=== PATIENT | female | born 1955 | race Caucasian/White ===

== ENCOUNTER → 2018-02-20 07:16 | Outpatient (CLI) | payer OTHER, SELFPAY ==
[2018-02-20 07:34] LABS: Basophils % 0.4 % (0.1-2.0); Eosinophils # 0.3 K/mm3 (0.0-0.4); Hematocrit 44.6 % (37.0-47.0); Hemoglobin 14.5 g/dL (12.2-16.2); Lymphocytes # 2.5 K/mm3 (0.7-4.5); Lymphocytes % 25.9 K/mm3 (10-50); Mean Corpuscular HGB Conc 32.4 g/dL (31.8-35.4); Mean Corpuscular Volume 89.3 fl (81-99); Monocytes # 0.5 K/mm3 (0.1-1.0); Monocytes % 4.9 % (1.7-9.3); Neutrophils # 6.2 K/mm3 (1.8-7.8); Neutrophils % 65.7 % (37.0-80.0); Platelet Count 353 K/mm3 (142-424); Red Cell Distribution Width 13.6 % (11.5-17.5); White Blood Count 9.5 K/mm3 (4.8-10.8)
[2018-02-20 08:28] LABS: Alanine Aminotransferase 22 U/L (12-78); Albumin Level 3.4 gm/dL (3.4-5.0); Albumin/Globulin Ratio 0.9 (1.1-1.8); Alkaline Phosphatase 100 U/L (46-116); Anion Gap 11.7 mEq/L (5-15); Aspartate Amino Transferase 14 U/L (15-37); Bilirubin,Total 0.4 mg/dL (0.2-1.0); Blood Urea Nitrogen 12 mg/dL (7-18); Calcium 8.5 mg/dL (8.5-10.1); Carbon Dioxide 26 mmol/L (21.0-32.0); Chloride 105 mmol/L (98-107); Chol/HDL Ratio 4.2 (1-3.5); Cholesterol 183 mg/dL (140-200); Creatinine,Serum 0.74 mg/dL (0.55-1.02); Estimated Glomerular Filt Rate 80 ml/min (>60); Ferritin 70 ng/mL (8-388); GFR (African American) 96 ML/MIN (>60); Globulin 3.8 gm/dl (1.3-3.2); Glucose 94 mg/dL (74-106); HDL Cholesterol 44 mg/dL (29-89); LDL Cholesterol 114 mg/dL (0-130); Potassium 3.7 mmoL/L (3.5-5.1); Sodium 139 mmol/L (136-145); Total Protein,Serum 7.2 gm/dL (6.4-8.2); Triglycerides 127 mg/dL (30-200); VLDL Cholesterol 25 mg/dL (0-40)
== END ==
PROVIDERS: Visit Provider Nurse Practitioner Family
DX: D50.9 Iron deficiency anemia, unspecified (principal); I10 Essential (primary) hypertension; E03.9 Hypothyroidism, unspecified
CPT/HCPCS: 36415; 80053; 80061; 82728; 84443; 85025

== ENCOUNTER → 2018-10-05 16:20 | Outpatient (CLI) | payer OTHER, SELFPAY ==
--- NOTE | 2018-10-05 16:24 | XR_ITS ---
XR chest 2V HISTORY: ITS.REASON: COUGH,WHEEZING,DYSPNEA ORDERING PHYSICIAN: Hope Whaley PATIENT AGE: 62 years COMPARISON: 08/19/2016 FINDINGS: The cardiomediastinal silhouette and pulmonary vascularity are within normal limits. The lungs are clear without infiltrates, suspicious nodules, or pleural effusions. No acute bony abnormalities. IMPRESSION: No change with no acute finding
== END ==
PROVIDERS: PCP Nurse Practitioner Family; Visit Provider Nurse Practitioner Family
DX: R05 Cough (principal); R06.2 Wheezing; R06.09 Other forms of dyspnea
CPT/HCPCS: 71046

== ENCOUNTER → 2018-10-21 11:18 | Outpatient (CLI) | payer OTHER, SELFPAY ==
[2018-10-21 12:16] LABS: Basophils % 0.4 % (0.1-2.0); Eosinophils # 0.2 K/mm3 (0.0-0.4); Eosinophils % 2.1 % (0.1-12.0); Hematocrit 44.9 % (37.0-47.0); Hemoglobin 13.9 g/dL (12.2-16.2); Lymphocytes # 2.6 K/mm3 (0.7-4.5); Lymphocytes % 24.1 % (10-50); Mean Corpuscular HGB Conc 30.9 g/dL (31.8-35.4); Mean Corpuscular Hemoglobin 28.3 pg (27.0-31.2); Mean Corpuscular Volume 91.6 fl (81-99); Mean Platelet Volume 7.3 fl (7.4-10.4); Monocytes # 0.5 K/mm3 (0.1-1.0); Monocytes % 4.5 % (1.7-9.3); Neutrophils # 7.4 K/mm3 (1.8-7.8); Neutrophils % 68.9 % (37.0-80.0); Platelet Count 385 K/mm3 (142-424); Red Blood Count 4.91 M/mm3 (4.20-5.40); Red Cell Distribution Width 13.3 % (11.5-17.5); White Blood Count 10.7 K/mm3 (4.8-10.8)
[2018-10-21 13:01] LABS: Alanine Aminotransferase 18 U/L (12-78); Albumin Level 3.4 gm/dL (3.4-5.0); Albumin/Globulin Ratio 0.9 (1.1-1.8); Alkaline Phosphatase 101 U/L (46-116); Anion Gap 13.3 mEq/L (5-15); Aspartate Amino Transferase 17 U/L (15-37); Bilirubin,Total 0.3 mg/dL (0.2-1.0); Blood Urea Nitrogen 14 mg/dL (7-18); Carbon Dioxide 29 mmol/L (21.0-32.0); Chloride 102 mmol/L (98-107); Creatinine,Serum 0.73 mg/dL (0.55-1.02); Estimated Glomerular Filt Rate 81 ml/min (>60); Ferritin 91 ng/mL (8-388); GFR (African American) 98 ML/MIN (>60); Glucose 96 mg/dL (74-106); Potassium 4.3 mmoL/L (3.5-5.1); Sodium 140 mmol/L (136-145); Total Protein,Serum 7.4 gm/dL (6.4-8.2)
== END ==
PROVIDERS: Visit Provider Nurse Practitioner Family
DX: D50.9 Iron deficiency anemia, unspecified (principal); R60.9 Edema, unspecified; E03.9 Hypothyroidism, unspecified
CPT/HCPCS: 36415; 80053; 82728; 84443; 85025

== ENCOUNTER → 2018-11-02 09:58 | Outpatient (CLI) | payer OTHER, SELFPAY ==
--- NOTE | 2018-11-02 10:02 | XR_ITS ---
XR knee RT 3V Ordering Physician: Ramon Tran MD Patient Age: 62 years: Female HISTORY: ITS.REASON: RT ANTERIOR KNEE PAIN No known injury.. Pain anterior knee across patella TECHNIQUE: 3 views right knee nonweightbearing COMPARISON :None FINDINGS Degenerative arthritic changes at the right knee most evident at the medial compartment . There is slight narrowing of the medial compartment on on this nonweightbearing study. Tricompartmental marginal osteophytes are most exuberant about the medial margin of the medial compartment. Today's Lateral film slightly rotated, but there is suggestion of joint effusion at the suprapatella bursa. Marginal osteophytes are seen about the margins of patella at patellofemoral joint. Patella appears to be satisfactory position on the lateral view. [place] view may be of benefit to further evaluate patellofemoral relationships if so desired ... Minimal hypertrophic spurring also noted at the insertion of the quadriceps as well as patellar tendon towards more anterior superior & inferior aspect of patella respectively.. Bones well mineralized. No erosive changes. Minimal fragmentation at the tibial tubercle region appears to be old feature. IMPRESSION: 1. Osteoarthritis changes Right Knee-most pronounced at the medial compartment, followed by the patellofemoral joint. 2. Suggestion of joint effusion suprapatella bursa
== END ==
PROVIDERS: PCP Internal Medicine Adolescent Medicine; Visit Provider Internal Medicine Adolescent Medicine
DX: M25.561 Pain in right knee (principal)
CPT/HCPCS: 73562

== ENCOUNTER → 2019-10-05 08:28 | Outpatient (CLI) | payer OTHER, SELFPAY ==
[2019-10-05 09:57] LABS: Basophils # 0.1 K/mm3 (0-0.2); Basophils % 0.6 % (0.1-2.0); Eosinophils # 0.3 K/mm3 (0.0-0.4); Eosinophils % 3.4 % (0.1-12.0); Hematocrit 41.2 % (37.0-47.0); Hemoglobin 13.2 g/dL (12.2-16.2); Lymphocytes # 2.2 K/mm3 (0.7-4.5); Lymphocytes % 26.8 % (10-50); Mean Corpuscular HGB Conc 32.1 g/dL (31.8-35.4); Mean Corpuscular Hemoglobin 28.2 pg (27.0-31.2); Mean Corpuscular Volume 87.9 fl (81-99); Mean Platelet Volume 7.9 fl (7.4-10.4); Monocytes # 0.4 K/mm3 (0.1-1.0); Monocytes % 5.1 % (1.7-9.3); Neutrophils # 5.4 K/mm3 (1.8-7.8); Neutrophils % 64.1 % (37.0-80.0); Platelet Count 386 K/mm3 (142-424); Red Blood Count 4.68 M/mm3 (4.20-5.40); Red Cell Distribution Width 13.6 % (11.5-17.5); White Blood Count 8.3 K/mm3 (4.8-10.8)
[2019-10-05 10:48] LABS: Chloride 101 mmol/L (98-107); Potassium 4.4 mmoL/L (3.5-5.1); Sodium 137 mmol/L (136-145)
[2019-10-05 10:50] LABS: Alanine Aminotransferase 13 U/L (12-78); Aspartate Amino Transferase 25 U/L (14-36); Blood Urea Nitrogen 11 mg/dl (7-17); Estimated Glomerular Filt Rate 85 ml/min (>60); GFR (African American) 102 ML/MIN (>60)
[2019-10-05 10:51] LABS: Albumin Level 3.7 g/dl (3.5-5.0); Albumin/Globulin Ratio 1.2 (1.1-1.8); Alkaline Phosphatase 80 U/L (38-126); Anion Gap 11.4 mEq/L (5-15); Bilirubin,Total 0.4 mg/dl (0.2-1.3); Calcium 9.1 mg/dl (8.4-10.2); Carbon Dioxide 29 mmol/L (22.0-30.0); Chol/HDL Ratio 5.3 (1-3.5); Cholesterol 192 mg/dl (140-200); Glucose 73 mg/dl (74-100); HDL Cholesterol 36 mg/dl (40-60); Total Protein,Serum 6.7 g/dl (6.3-8.2); Triglycerides 164 mg/dl (30-150); VLDL Cholesterol 33 mg/dL (0-40)
[2019-10-05 11:02] LABS: Direct LDL Cholesterol 133.74 mg/dL (100-129)
== END ==
PROVIDERS: Visit Provider Nurse Practitioner Family
DX: E03.9 Hypothyroidism, unspecified (principal); I89.0 Lymphedema, not elsewhere classified; I10 Essential (primary) hypertension; Z86.2 Personal history of diseases of the blood and blood-forming organs and certain disorders involving the immune mechanism
CPT/HCPCS: 36415; 80053; 80061; 84439; 84443; 85025

== ENCOUNTER 2019-10-22 09:00 | Outpatient (RCR) | payer OTHER, SELFPAY ==
--- NOTE | 2019-10-04 14:15 | HMH.PTOPWND ---
Rehab Outpt Wound Evaluation Rehab OP Wound Evaluation Start: 10/04/19 13:01 Freq: Status: Active Protocol: Document 10/04/19 14:09 KARAN (Rec: 10/04/19 14:15 PHORNE [id number]) Electronically Signed By Jorge Muir, PT 10/04/19 14:09 Subjective/History History History Pt is 63 yowf who presents with c/o B LE edema, L > R, x ~ 2 yrs overall, but worse x 2 mos. She reports no c/o pain, but mild tenderness to palpation and intermittent tingling in the toes. She edema usually decreased with elevation at night, but lately it has remained higher despite elevation. She has PMH of CONSTANTINE, R breast CA with lumpectomy and partial mastectomy with 2 LN removed, L TKA, thyroidectomy, HTN. Subjective Subjective She reports 0/10 pain currently. Lymphedema Eval Classification of Lymphedema Secondary Lymphedema Yes Stemmer's sign Stemmer's Sign no Stage of Lymphedema Lymphedema stages Stage II (Pitting edema, increased fibrosis w/ decreased pitting) Skin Changes Dry Skin Yes Redness Yes Other Changes Yes Pain Scale Pain Scale (0-10) 0 Chemo Therapy Has received chemo therapy yes Affected Extremities Areas Affected by Lymphedema/Edema Abdomen,Right Lower Extremity, Left Lower Extremity Manual Lymphatic Drainage Treatment Area MLD Treatment Area Right Lower Extremity,Left Lower Extremity Wound Problems/Impairments Impairments Problems/Impairmments Palpation Tenderness,Increased Edema,Lymphedema Present, Impaired Self Care/Self Management Prognosis Rehab Potential Good Clinical Impression Consistent with Diagnosis Yes Short Term Goals Number of Weeks 4 Decreased Palpation Tenderness Yes: to min Patient to be Ind w/ [place] Yes Compression Garments Patient to Understand Lymphedema Yes Treatment and Exercises Decrease Girth Measurments by (cm) Yes: by 10 cm Last Picker Goals Number of Weeks 8 Decreased Palpation Tenderness Yes: to none Patient to be Ind w/ HEP Yes Patient to be
== END 2019-10-22 09:05 | disposition home or self-care (01) ==
LOC: PT 09:00
PROVIDERS: PCP Internal Medicine Adolescent Medicine; Visit Provider Nurse Practitioner Family
DX: I89.0 Lymphedema, not elsewhere classified (principal)
CPT/HCPCS: 97140; 97162

== ENCOUNTER → 2020-05-14 16:49 | Outpatient (CLI) | payer OTHER, SELFPAY | PROVIDERS: PCP Internal Medicine Adolescent Medicine; Visit Provider Nurse Practitioner Family | DX: Z20.828 Contact with and (suspected) exposure to other viral communicable diseases (principal); U07.1 COVID-19 | CPT/HCPCS: U0003 ==

== ENCOUNTER → 2020-06-06 08:09 | Outpatient (CLI) | payer OTHER, SELFPAY ==
[2020-06-06 08:49] LABS: Basophils # 0.1 K/mm3 (0-0.2); Basophils % 0.5 % (0.1-2.0); Eosinophils # 0.2 K/mm3 (0.0-0.4); Hematocrit 40.4 % (37.0-47.0); Hemoglobin 12.9 g/dL (12.2-16.2); Lymphocytes # 2.4 K/mm3 (0.7-4.5); Lymphocytes % 21.8 % (10-50); Mean Corpuscular Hemoglobin 26.8 pg (27.0-31.2); Mean Corpuscular Volume 83.9 fl (81-99); Mean Platelet Volume 7.3 fl (7.4-10.4); Monocytes # 0.5 K/mm3 (0.1-1.0); Monocytes % 4.9 % (1.7-9.3); Neutrophils # 7.9 K/mm3 (1.8-7.8); Neutrophils % 70.8 % (37.0-80.0); Platelet Count 454 K/mm3 (142-424); Red Blood Count 4.82 M/mm3 (4.20-5.40); Red Cell Distribution Width 15.1 % (11.5-17.5); White Blood Count 11.1 K/mm3 (4.8-10.8)
[2020-06-06 09:40] LABS: Chloride 103 mmol/L (98-107); Sodium 139 mmol/L (136-145)
[2020-06-06 09:41] LABS: Potassium 4.5 mmoL/L (3.5-5.1)
[2020-06-06 09:43] LABS: Alanine Aminotransferase 14 U/L (12-78); Albumin Level 3.9 g/dl (3.5-5.0); Albumin/Globulin Ratio 1.2 (1.1-1.8); Alkaline Phosphatase 97 U/L (38-126); Anion Gap 11.5 mEq/L (5-15); Aspartate Amino Transferase 24 U/L (14-36); Bilirubin,Total 0.4 mg/dl (0.2-1.3); Blood Urea Nitrogen 15 mg/dl (7-17); Carbon Dioxide 29 mmol/L (22.0-30.0); Cholesterol 196 mg/dl (140-200); Estimated Glomerular Filt Rate 84 ml/min (>60); GFR (African American) 102 ML/MIN (>60); Globulin 3.2 g/dL (1.3-3.2); Total Protein,Serum 7.1 g/dl (6.3-8.2); Triglycerides 159 mg/dl (30-150); VLDL Cholesterol 32 mg/dL (0-40)
[2020-06-06 09:44] LABS: Calcium 9.1 mg/dl (8.4-10.2); Chol/HDL Ratio 4.5 (1-3.5); Glucose 91 mg/dl (74-100); HDL Cholesterol 44 mg/dl (40-60)
[2020-06-06 09:55] LABS: Direct LDL Cholesterol 128.84 mg/dL (100-129)
[2020-06-06 11:31] LABS: Thyroid Stimulating Hormone 2.58 uIU/mL (0.465-4.68)
== END ==
PROVIDERS: Visit Provider Nurse Practitioner Family
DX: I89.0 Lymphedema, not elsewhere classified (principal); E78.5 Hyperlipidemia, unspecified; E03.9 Hypothyroidism, unspecified; Z86.2 Personal history of diseases of the blood and blood-forming organs and certain disorders involving the immune mechanism
CPT/HCPCS: 36415; 80053; 80061; 84443; 85025

== ENCOUNTER → 2020-06-14 10:47 | Outpatient (CLI) | payer OTHER, SELFPAY ==
--- NOTE | 2020-06-14 10:49 | MM_ITS ---
PROCEDURE: MM DIG SCREENING MAMM BI W/CAD Digital Breast Tomosynthesis Included CLINICAL INDICATION: SCREENING There has been a previous lumpectomy for malignancy right breast. There is a history of breast COMPARISON: MG DMSB DIGITAL MAMM-SCREEN BILATERAL from 05/08/2012 MG DMSB DIG MAMM-SCREEN MARY from 09/16/2013 MG DMSB DIG MAMM-SCREEN MARY from 09/12/2015 TECHNIQUE: Standard CC and MLO images and 3D Tomosynthesis was obtained. R2 CAD reviewed. FINDINGS: Mild to moderate scattered fibroglandular densities are seen throughout both breasts. There is stable postlumpectomy scarring central portion right breast with multiple surgical clips as seen on previous studies. There is a stable tiny nodular density adjacent to the lumpectomy site with benign findings. There is no new or suspicious lesion in either breast and no suspicious microcalcifications. IMPRESSION: Stable exam with stable post lumpectomy scarring right breast BI-RAD Category: 2 Benign Finding(s) FOLLOW-UP: 1YR 1 Year Follow-up (A letter has been sent to the patient regarding results of the study.) Dictated by: Dr. Armando Moody MD 06/16/2020 08:54 Dr. Armando Moody MD in [place] 06/16/2020 08:54
== END ==
PROVIDERS: PCP Internal Medicine Adolescent Medicine; Visit Provider Nurse Practitioner Family
DX: Z12.31 Encounter for screening mammogram for malignant neoplasm of breast (principal)
CPT/HCPCS: 77063; 77067

== ENCOUNTER → 2020-10-02 09:17 | Outpatient (CLI) | payer OTHER, SELFPAY | PROVIDERS: PCP Nurse Practitioner Family; Visit Provider Nurse Practitioner Family | DX: Z12.31 Encounter for screening mammogram for malignant neoplasm of breast (principal) ==

== ENCOUNTER → 2021-07-02 08:55 | Outpatient (CLI) | payer OTHER, SELFPAY ==
[2021-07-02 09:21] LABS: Basophils # 0.1 K/mm3 (0-0.2); Basophils % 0.6 % (0.1-2.0); Eosinophils # 0.4 K/mm3 (0.0-0.4); Eosinophils % 4.7 % (0.1-12.0); Hematocrit 40.3 % (37.0-47.0); Hemoglobin 13.4 g/dL (12.2-16.2); Lymphocytes # 1.9 K/mm3 (0.7-4.5); Lymphocytes % 20.9 % (10-50); Mean Corpuscular HGB Conc 33.3 g/dL (31.8-35.4); Mean Corpuscular Hemoglobin 27.6 pg (27.0-31.2); Mean Corpuscular Volume 82.8 fl (81-99); Mean Platelet Volume 8.4 fl (7.4-10.4); Monocytes # 0.5 K/mm3 (0.1-1.0); Monocytes % 5.2 % (1.7-9.3); Neutrophils # 6.3 K/mm3 (1.8-7.8); Neutrophils % 68.6 % (37.0-80.0); Platelet Count 499 K/mm3 (142-424); Red Blood Count 4.86 M/mm3 (4.20-5.40); Red Cell Distribution Width 14.4 % (11.5-17.5); White Blood Count 9.1 K/mm3 (4.8-10.8)
[2021-07-02 10:11] LABS: Chloride 102 mmol/L (98-107); Potassium 4.7 mmoL/L (3.5-5.1); Sodium 139 mmol/L (136-145)
[2021-07-02 10:13] LABS: Alanine Aminotransferase 10 U/L (12-78); Aspartate Amino Transferase 28 U/L (14-36); Blood Urea Nitrogen 12 mg/dl (7-17); Estimated Glomerular Filt Rate 84 ml/min (>60); GFR (African American) 102 ML/MIN (>60)
[2021-07-02 10:14] LABS: Albumin Level 3.9 g/dl (3.5-5.0); Albumin/Globulin Ratio 1.3 (1.1-1.8); Alkaline Phosphatase 121 U/L (38-126); Anion Gap 11.7 mEq/L (5-15); Bilirubin,Total 0.3 mg/dl (0.2-1.3); Calcium 9.7 mg/dl (8.4-10.2); Carbon Dioxide 30 mmol/L (22.0-30.0); Chol/HDL Ratio 4.6 (1-3.5); Cholesterol 212 mg/dl (140-200); Globulin 3.1 g/dL (1.3-3.2); Glucose 93 mg/dl (74-100); HDL Cholesterol 46 mg/dl (40-60); Triglycerides 182 mg/dl (30-150); VLDL Cholesterol 36 mg/dL (0-40)
[2021-07-02 10:45] LABS: Thyroid Stimulating Hormone 3.22 uIU/mL (0.465-4.68)
== END ==
PROVIDERS: Visit Provider Nurse Practitioner Family
DX: Z00.00 Encounter for general adult medical examination without abnormal findings (principal); E03.9 Hypothyroidism, unspecified
CPT/HCPCS: 36415; 80053; 80061; 84443; 85025

== ENCOUNTER → 2021-07-12 08:13 | Outpatient (CLI) | payer OTHER, SELFPAY ==
--- NOTE | 2021-07-12 08:16 | XR_ITS ---
PROCEDURE: XR DEXA AXIAL SKELETON CLINICAL HISTORY: POST MENOPAUSAL COMPARISON: No exams were available for comparison FINDINGS: The right hip BMD is 0.775 with a T-score of -0.7. The left hip BMD is 0.83 with a T-score of -0.1. The lumbar spine BMD is 1.165 with a T-score of 1.1. IMPRESSION: This patient is considered normal according to the World Health Organization criteria. Fracture risk is low. Based on these results a follow-up exam is recommended in 2 year. Dictated by: Ricky Jansen MD 07/12/2021 16:57 Ricky Jansen MD in [place] 07/12/2021 16:57
--- NOTE | 2021-07-12 08:16 | MM_ITS ---
PROCEDURE INFORMATION: Exam: MG Bilateral Screening 3D Mammography Exam date and time: 07/12/2021 8:16 AM Age: 65 years old Clinical indication: Encounter for screening mammogram for malignant neoplasm of breast TECHNIQUE: Imaging protocol: Bilateral screening tomosynthesis and 2D mammography including computer-aided detection (CAD) when performed. COMPARISON: 1. MG MM DIG SCREENING MAMM BI W/CAD 06/14/2020 10:51 AM 2. MG DMSB DIG MAMM-SCREEN MARY 09/12/2015 9:17 AM FINDINGS: MAMMOGRAPHY: Breast composition: The breast tissue is composed of scattered areas of fibroglandular density. Mass: None. Architectural distortion: Stable post operative architectural distortion in the right upper inner quadrant with overlying skin thickening and retraction due to prior lumpectomy for carcinoma. Calcifications: No suspicious calcifications. Asymmetric density: None. Skin thickening: None. Axillary adenopathy: None. IMPRESSION: No mammographic evidence of malignancy. Annual screening is recommended unless otherwise clinically indicated. ASSESSMENT: BI-RADS Category 2: Benign
== END ==
PROVIDERS: PCP Nurse Practitioner Family; Visit Provider Nurse Practitioner Family
DX: Z12.31 Encounter for screening mammogram for malignant neoplasm of breast (principal); Z13.820 Encounter for screening for osteoporosis; Z78.0 Asymptomatic menopausal state
CPT/HCPCS: 77063; 77067; 77080

== ENCOUNTER → 2023-01-09 08:37 | Outpatient (CLI) | payer MEDICARE, OTHER, SELFPAY | PROVIDERS: PCP Nurse Practitioner Family; Visit Provider Nurse Practitioner Family | DX: R00.2 Palpitations (principal) | CPT/HCPCS: 93306 ==

== ENCOUNTER → 2023-06-04 12:55 | Outpatient (CLI) | payer MEDICARE, OTHER, SELFPAY ==
[2023-06-04 13:42] LABS: Basophils # 0.1 K/mm3 (0-0.2); Basophils % 0.6 % (0.1-2.0); Eosinophils # 0.2 K/mm3 (0.0-0.4); Eosinophils % 2.7 % (0.1-12.0); Hematocrit 43.1 % (37.0-47.0); Hemoglobin 14.2 g/dL (12.2-16.2); Lymphocytes # 2.1 K/mm3 (0.7-4.5); Lymphocytes % 23.9 % (10-50); Mean Corpuscular Hemoglobin 28.4 pg (27.0-31.2); Monocytes # 0.4 K/mm3 (0.1-1.0); Monocytes % 4.7 % (1.7-9.3); Neutrophils # 5.9 K/mm3 (1.8-7.8); Platelet Count 347 K/mm3 (142-424); Red Blood Count 5.01 M/mm3 (4.20-5.40); Red Cell Distribution Width 15.3 % (11.5-17.5); White Blood Count 8.7 K/mm3 (4.8-10.8)
[2023-06-04 15:26] LABS: Alanine Aminotransferase 23 U/L (12-78); Albumin Level 4.1 g/dl (3.5-5.0); Albumin/Globulin Ratio 1.2 (1.1-1.8); Alkaline Phosphatase 98 U/L (38-126); Anion Gap 14.1 mEq/L (5-15); Aspartate Amino Transferase 36 U/L (14-36); Bilirubin,Total 0.3 mg/dl (0.2-1.3); Blood Urea Nitrogen 10 mg/dl (7-17); Calcium 9.1 mg/dl (8.4-10.2); Carbon Dioxide 30 mmol/L (22.0-30.0); Chloride 99 mmol/L (98-107); Chol/HDL Ratio 4.8 (1-3.5); Cholesterol 196 mg/dl (140-200); Estimated Glomerular Filt Rate 62 ml/min (>60); GFR (African American) 76 ML/MIN (>60); Globulin 3.3 g/dL (1.3-3.2); Glucose 95 mg/dl (74-100); HDL Cholesterol 41 mg/dl (40-60); Potassium 4.1 mmoL/L (3.5-5.1); Sodium 139 mmol/L (136-145); Total Protein,Serum 7.4 g/dl (6.3-8.2); Triglycerides 170 mg/dl (30-150); VLDL Cholesterol 34 mg/dL (0-40)
[2023-06-04 15:36] LABS: Direct LDL Cholesterol 123.43 mg/dL (100-129)
[2023-06-04 15:56] LABS: Thyroid Stimulating Hormone 0.63 uIU/mL (0.465-4.68)
== END ==
PROVIDERS: PCP Nurse Practitioner Family; Visit Provider Nurse Practitioner Family
DX: E03.9 Hypothyroidism, unspecified (principal); E78.2 Mixed hyperlipidemia; Z86.2 Personal history of diseases of the blood and blood-forming organs and certain disorders involving the immune mechanism
CPT/HCPCS: 36415; 80053; 80061; 84443; 85025

== ENCOUNTER → 2023-07-14 15:04 | Outpatient (CLI) | payer MEDICARE, OTHER, SELFPAY ==
--- NOTE | 2023-07-14 15:10 | MM_ITS ---
PROCEDURE INFORMATION: Exam: MG Bilateral Screening 3D Mammography Exam date and time: 07/14/2023 3:11 PM Age: 67 years old Clinical indication: Screening examination. History of right breast cancer TECHNIQUE: Imaging protocol: Bilateral Screening tomosynthesis and 2D mammography including computer-aided detection (CAD) when performed. COMPARISON: 1. MG MM DIG SCREENING MAMM BI W/CAD 07/12/2021 8:35 AM 2. MG MM DIG SCREENING MAMM BI W/CAD 06/14/2020 10:51 AM FINDINGS: MAMMOGRAPHY: Breast composition: There are scattered areas of fibroglandular density. Mass: None. Architectural distortion: Stable post operative architectural distortion in the right upper inner quadrant with overlying skin thickening and retraction due to prior lumpectomy for carcinoma. Calcifications: No suspicious calcifications. Asymmetric density: None. Skin thickening: See above. Axillary adenopathy: None. IMPRESSION: No mammographic evidence of malignancy. Annual screening is recommended unless otherwise clinically indicated. ASSESSMENT: BI-RADS Category 2: Benign
== END ==
PROVIDERS: PCP Nurse Practitioner Family; Visit Provider Nurse Practitioner Family
DX: Z12.31 Encounter for screening mammogram for malignant neoplasm of breast (principal)
CPT/HCPCS: 77063; 77067

== ENCOUNTER 2024-07-15 09:28 | Outpatient (CLI) | payer MEDICARE, OTHER, SELFPAY ==
--- NOTE | 2024-07-15 | US_ITS ---
PROCEDURE INFORMATION: Exam: US Left Breast, Complete MG Left Diagnostic Breast Tomosynthesis Exam date and time: 07/15/2024 9:25 AM Age: 68 years old Clinical indication: Concern for left breast lump. Personal history of right breast cancer status post lumpectomy. TECHNIQUE: Imaging protocol: Complete ultrasound of all four quadrants of the left breast and the retroareolar regions, including ultrasound of the axilla when performed. Left Diagnostic tomosynthesis and 2D mammography including computer-aided detection (CAD) when performed. Unilateral or bilateral exam. COMPARISON: 1. MG MM DIG SCREENING MAMM BI W/CAD 07/14/2023 3:11 PM 2. MG MM DIG SCREENING MAMM BI W/CAD 07/12/2021 8:35 AM 3. MG MM DIG SCREENING MAMM BI W/CAD 06/14/2020 10:51 AM 4. MG DMSB DIG MAMM-SCREEN MARY 09/12/2015 9:17 AM FINDINGS: MAMMOGRAPHY: Breast mammogram findings: Breast composition: There are scattered areas of fibroglandular density. Mass: Oval 0.6 cm mass in the left upper inner quadrant posterior 3rd, CC image 1718 frame 23 and MLO image 1106 for frame 40. Architectural distortion: Stable architectural distortion, asymmetry, deformity and surgical clips at the right lumpectomy. Calcifications: No suspicious calcifications. Asymmetric density: Corresponding to the palpable concern, patchy 2.0 cm asymmetry best seen in the left lateral breast posteriorly in the CC projection and less prominent in the upper breast in the MLO projection. Skin thickening: None. Axillary adenopathy: None. ULTRASOUND: Breast ultrasound findings: Left sonography, all 4 quadrants, retroareolar and axilla demonstrates no sonographic findings at the palpable concern in the upper outer quadrant in 2 o'clock 7 cm from the nipple. At 10 o'clock 9 cm from the nipple, probable complicated cyst with thin avascular septation measuring 0.6 x 0.4 x 0.4 cm. Retroareolar, probable simple 0.3 cm cyst. Sonographically unremarkable axillary lymph node. IMPRESSION: Palpable concern corresponds to new patchy asymmetry in the left upper outer quadrant, best seen in the posterior CC projection, with no sonographic correlate. Suggest stereotactic biopsy in the CC projection, if not visualized, advise breast MRI. Further evaluation of a palpable abnormality should be based on clinical grounds regardless of radiographic findings or lack thereof. Mass in the left upper inner quadrant corresponds to probably benign complicated cyst at 10 o'clock, suggest six-month follow-up sonography (though management may be influenced by above recommended biopsy). ASSESSMENT: BI-RADS Category 4: Suspicious.
== END 2024-07-15 23:59 | disposition home or self-care (01) ==
LOC: RAD 09:32
PROVIDERS: PCP Nurse Practitioner Family; Visit Provider Nurse Practitioner Family
DX: N63.20 Unspecified lump in the left breast, unspecified quadrant (principal)
CPT/HCPCS: 76641; 77062; 77066; G0279

== ENCOUNTER 2024-08-02 09:05 | Outpatient (CLI) | payer MEDICARE, OTHER, SELFPAY ==
--- NOTE | 2024-08-02 09:10 | MM_ITS ---
FINAL REPORT CLINICAL HISTORY: S/P LT BREAST BX. CLIP PLACEMENT FINDINGS: MAMMOGRAM LEFT TECHNIQUE: Standard digital 2-D views COMPARISON: Recent abnormal screening and diagnostic mammograms DENSITY: There are scattered areas of fibroglandular density FINDINGS: Post biopsy marker clip is noted to be in satisfactory position. Postbiopsy changes are noted. Area of focal asymmetry is obscured by postbiopsy changes in the left upper outer quadrant. IMPRESSION: Biopsy marker clip in good position ASSESSMENT: A post-procedure mammogram is used to confirm the position and deployment of a breast tissue marker after a biopsy RECOMMENDATION: Short-term mammographic follow-up left breast in 6 months as part of normal benign biopsy surveillance. Authenticated and ERN
--- NOTE | 2024-08-02 09:10 | MM_ITS ---
FINAL REPORT CLINICAL HISTORY: left breast density FINDINGS: STEREOTACTIC GUIDED RIGHT BREAST BIOPSY, CLIP PLACEMENT, AND POST BIOPSY MAMMOGRAM Indication: Abnormal mammogram/density/mass Findings: The stereotactic guided breast biopsy procedure was explained in detail to the patient including potential risk and benefits. The patient voiced an understanding of the procedure, was given an opportunity to ask questions, after which informed consent was obtained. The patient was positioned upon the stereotactic unit in the prone position. The breast was prepped in the usual sterile fashion. Subcutaneous soft tissues were anesthetized with lidocaine with epinephrine. A superior to inferior CC approach was utilized. Subsequently, with intermittent stereotactic guidance, the stereotactic biopsy needle was advanced into the breast in the region of the mammographic abnormality corresponding to recent diagnostic mammogram. Multiple vacuum assisted core samples were obtained. Sampling was thought to be adequate and the biopsy clip marker was deployed in the region of biopsy. Additional imaging as detailed below was performed. Post procedure routine CC and MLO view mammogram: Post biopsy changes. Biopsy marker clip noted to be in the appropriate location. Patient tolerated the procedure well. No immediatecomplications. IMPRESSION: 1. Technically successful stereotactic guided biopsy of focal asymmetry left breast 2. Biopsy marker clip deployed 3. 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 No evidence of atypia or carcinoma. Pathology is concordant with mammographic findings. Recommend 6 month mammographic follow-up as routine benign postbiopsy surveillance. Authenticated and ERN
[2024-08-02] MEDS: HYDROCODONE/APAP 5/325 MG TABLET 1 TAB PO (10:00)
[2024-08-02] MEDS: ALPRAZolam 0.5MG TABLET 0.5 MG PO (10:00)
[2024-08-02] MEDS: LIDOCAINE 1% 10ML MDV IJ (11:20)
[2024-08-02] MEDS: RAD-SODIUM CHLORIDE 0.9% 250ML BAG 100 ML IV (11:31)
== END 2024-08-02 23:59 | disposition home or self-care (01) ==
LOC: RAD 09:07
PROVIDERS: PCP Nurse Practitioner Family; Visit Provider Nurse Practitioner Family
DX: R92.8 Other abnormal and inconclusive findings on diagnostic imaging of breast (principal); N63.20 Unspecified lump in the left breast, unspecified quadrant
CPT/HCPCS: 19081; 77065; 88305

== ENCOUNTER 2025-08-02 15:10 | Outpatient (CLI) | payer MEDICARE, OTHER, SELFPAY ==
--- OUTSIDE RECORDS SUMMARY | 2024-11-06 16:30 | XMS_ITS ---
Author Organization [facility] Address [address] [place] [address] Care Team Providers Care Text Transcriber Name Role Phone Jovana Hope Primary Care Provider [phone] Migration, Provider Unavailable Unavailable REASON FOR VISIT [facility] To [facility] Conversion Encounter Medications Medication SIG (Take, Route, Frequency, Duration) Notes Start Date End Date Status Levothyroxine Sodium 137 MCG Tablet 1 tab(s) orally once a day; Duration: 30 days Active Triamcinolone Acetonide 0.1 % Ointment 1 judah applied topically 3 times a day; Duration: 7 day(s) prn 03/30/2022 Active Ibuprofen 800 MG Tablet 1 tab(s) orally 3-4 times a day prn prn Active TRIAMTERENE/HCTZ 25 MG-37.5 MG CAPSULE 1 TAB(S) ORALLY ONCE A DAY; Duration: 90 DAYS *Please review for potential replacement for e-prescription and drug interaction check* Active Nystatin 958308 UNIT/GM Cream 1 judah applied topically 3 times a day; Duration: 14 days prn 02/19/2018 Active Promethazine-DM 6.25-15 MG/5ML Syrup 5 mL orally every 6 hours; Duration: 10 days 10/08/2024 Active Amoxicillin 875 MG Tablet 1 tab(s) orally 2 times a day; Duration: 7 days 10/08/2024 Active Encounters Encounter Location Date Provider Diagnosis [facility] [address] [place] [address] 11/06/2024 Provider Migration Acute non-recurrent maxillary sinusitis J01.00 and Viral bronchitis J20.8 Assessments Encounter Date Diagnosis (ICD Code) Assessment Notes Treatment Notes Treatment Clinical Notes Section Notes 11/06/2024 Acute non-recurrent maxillary sinusitis (ICD-10 - J01.00) 11/06/2024 Viral bronchitis (ICD-10 - J20.8) Plan Of Treatment Medication Medication Name Sig Start Date Stop Date Notes Levothyroxine Sodium 137 MCG Tablet 1 tab(s) orally once a day; Duration: 30 days Promethazine-DM 6.25-15 MG/5 ML Syrup 5 mL orally every 6 hours; Duration: 10 days 10/08/2024 Amoxicillin 875 MG Tablet 1 tab(s) orall y 2 times a day; Duration: 7 days 10/08/2024 Progress Notes * Aggie PAUL LDOB: [birth year] (69 yo F)Acc No.[id number]:11/06/2024 Patient: Aggie Nagy Provider: Marylin menon Migration :1955 A ge:68 Y S ex:Female Date:11/06/2024 Address:[facility] [address], [id number] Pcp:Hope Whaley Subjective: * Chief Complaints: * [facility] To [facility] Conversion Encounter * Medications: T akingIbuprofen 800 MG Tablet 1 tab(s) orally 3-4 times a day prn , Notes to Pharmacist: prnTriamcinolone Acetonide 0.1 % Ointment 1 judah applied topically 3 times a day , Notes to Pharmacist: prnNystatin [id number] UNIT/GM Cream 1 judah applied topically 3 times a day , Notes to Pharmacist: prnTRIAMTERENE/HCTZ 25 MG-37.5 MG CAPSULE 1 TAB(S) ORALLY ONCE A DAY , Notes to Pharmacist: *Please review for potential replacement for e-prescription and drug interaction check*Taking Ibuprofen 800 MG Tablet 1 tab(s) orally 3-4 times a day prn , Notes to Pharmacist: prnTaking Triamcinolone Acetonide 0.1 % Ointment 1 judah applied topically 3 times a day , Notes to Pharmacist: prnTaking Nystatin 820826 UNIT/GM Cream 1 judah applied topically 3 times a day , Notes to Pharmacist: prnTaking TRIAMTERENE/HCTZ 25 MG-37.5 MG CAPSULE 1 TAB(S) ORALLY ONCE A DAY , Notes to Pharmacist: *Please review for potential replacement for e-prescription and drug interaction check* Assessment: * Assessment: 1. A cute non-recurrent maxillary sinusitis - J01.00 (Primary) 2 . V iral bronchitis - J20.8 Plan: * Treatment: 2. V iral bronchitis Start Promethazine-DM Syrup, 6.25-15 MG/5ML, 5 mL, orally, every 6 hours, 10 days, 200 ML, Refills 1. 3. O thers Start Levothyroxine Sodium Tablet, 137 MCG, 1 tab(s), orally, once a day, 30 days, 30, Refills 3.? * Electronic signature of Prov ider Migration on 08/02/2025 at 03:13 PM EST Sign off status: Pending * Provider: Marylin menon Migration Date: 0 11/06/2024 Generated for Paul ambrose/Evelyn/Cheitting on: 1 03:13 PM EST
--- OUTSIDE RECORDS SUMMARY | 2025-06-23 07:15 | XMS_ITS ---
Author Organization [facility] Address [address] [place] [address] Care Team Providers Care Heating And Ventilating Tender Name Role Phone JovanaHope Primary Care Provider [phone] Allergies No Known Allergies Results Component Value Reference Range Flag Notes LIPID PANEL, STANDARD (7600) Reviewed date:06/24/2025 03:33:04 PM Interpretation: Performing Lab:CORIE, bookjam[facility] [address]te[address] [facility], Marcelino SchmidtGkhsRB[address] [address] [place] Notes/Report: NON-FASTING; NON-FASTING; NON-FASTING; NON-FASTING FASTING:YES FASTING: YES CHOLESTEROL, TOTAL 185 <200 mg/dL N HDL CHOLESTEROL 48 > OR = 50 mg/dL L TRIGLYCERIDES 122 <150 mg/dL N LDL-CHOLESTEROL 114 H Reference range: <100 Desirable range <100 mg/dL for primary prevention; <70 mg/dL for patients with CHD or diabetic patients with > or = 2 CHD risk factors. LDL-C is now calculated using the Erma calculation, which is a validated novel method providing better accuracy than the Friedewald equation in the estimation of LDL-C. Alessandro REYES et al. MARY LOU. 2013;310(19): 9039-7166 (http://education.bookjam.[employer]/faq/FAQ 164) CHOL/HDLC RATIO 3.9 <5.0 (calc) N NON HDL CHOLESTEROL 137 <130 mg/dL (calc) H For patients with diabetes plus 1 major ASCVD risk factor, treating to a non-HDL-C goal of <100 mg/dL (LDL-C of <70 mg/dL) is considered a therapeutic option. COMPREHENSIVE METABOLIC PANDario Lugo ([id number]) Reviewed date:06/24/2025 03:33:04 PM Interpretation: Performing Lab:[facility]IE [facility] [id number] [facility], [facility] HospitalHoklBH[address] [address] [place] Notes/Report: NON-FASTING; NON-FASTING; NON-FASTING; NON-FASTING FASTING:YES FASTING: YES GLUCOSE 77 65-99 mg/dL N Fasting reference interval UREA NITROGEN (BUN) 14 7-25 mg/dL N CREATININE 0.76 0.50-1.05 mg/dL N EGFR 85 > OR = 60 mL/min/1.73m2 N BUN/CREATININE RATIO SEE NOTE: 6-22 (calc) Not Reported: BUN and Creatinine are within reference range. SODIUM 140 135-146 mmol/L N POTASSIUM 4.2 3.5-5.3 mmol/L N CHLORIDE 102 98-110 mmol/L N CARBON DIOXIDE 26 20-32 mmol/L N CALCIUM 9.4 8.6-10.4 mg/dL N PROTEIN, TOTAL 7.2 6.1-8.1 g/dL N ALBUMIN 3.9 3.6-5.1 g/dL N GLOBULIN 3.3 1.9-3.7 g/dL (calc) N ALBUMIN/GLOBULIN RATIO 1.2 1.0-2.5 (calc) N BILIRUBIN, TOTAL 0.4 0.2-1.2 mg/dL N ALKALINE PHOSPHATASE 95 37-153 U/L N AST 18 10-35 U/L N ALT 8 6-29 U/L N CBC (INCLUDES DIFF/PLT) (639 9) Reviewed date:06/24/2025 03:33:04 PM Interpretation: Performing Lab:[facility] [id number] [facility], [facility] HospitalJelmPQ[address] [address] [place] Notes/Report: NON-FASTING; NON-FASTING; NON-FASTING; NON-FASTING FASTING:YES FASTING: YES WHITE BLOOD CELL COUNT 7.8 3.8-10.8 Thousand/uL N RED BLOOD CELL COUNT 4.78 3.80-5.10 Million/uL N HEMOGLOBIN 14.0 11.7-15.5 g/dL N HEMATOCRIT 42.9 35.0-45.0 % N MCV 89.7 80.0-100.0 fL N MCH 29.3 27.0-33.0 pg N MCHC 32.6 32.0-36.0 g/dL N For adults, a slight decrease in the calculated MCHC value (in the range of 30 to 32 g/dL) is most likely not clinically significant; however, it should be interpreted with caution in correlation with other red cell parameters and the patient's clinical condition. RDW 12.1 11.0-15.0 % N PLATELET COUNT 398 140-400 Thousand/uL N MPV 10.7 7.5-12.5 fL N ABSOLUTE NEUTROPHILS 5203 3650-2860 cells/uL N ABSOLUTE LYMPHOCYTES 3904 972-7307 cells/uL N ABSOLUTE MONOCYTES 632 200-950 cells/uL N ABSOLUTE EOSINOPHILS 179 15-500 cells/uL N ABSOLUTE BASOPHILS 47 0-200 cells/uL N NEUTROPHILS 66.7 N LYMPHOCYTES 22.3 N MONOCYTES 8.1 N EOSINOPHILS 2.3 N BASOPHILS 0.6 N TSH W/REFLEX TO FT4 ([id number]) Reviewed date:06/24/2025 03:33:04 PM Interpretation: Performing Lab:CB, [facility] [id number] [facility], [facility] HospitalHeokJZ[address] [address] [place] Notes/Report: NON-FASTING; NON-FASTING; NON-FASTING; NON-FASTING FASTING:YES FASTING: YES TSH W/REFLEX TO FT4 0.89 0.40-4.50 mIU/L N REASON FOR VISIT annual Medications Medication SIG (Take, Route, Frequency, Duration) Notes Start Date End Date Status Nystatin 589771 UNIT/GM Cream 1 cosme applied topically 3 times a day; Duration: 14 days prn 02/19/2018 Active Levothyroxine Sodium 137 MCG Tablet 1 tab(s) orally once a day; Duration: 30 days Active Triamterene-HCTZ 37.5-25 MG Capsule TAKE ONE (1) CAPSULE BY MOUTH ONCE DAILY; Duration: 90 Active Triamcinolone Acetonide 0.1 % Ointment 1 cosme applied topically 3 times a day; Duration: 7 day(s) prn 03/30/2022 Active Ibuprofen 800 MG Tablet 1 tab(s) orally 3-4 times a day prn prn Active Immunizations Vaccine Route Administration Date Status Comme nts Fluzone High Dose IM Intramuscular 06/23/2025 Administered Social History Social History Additional Details Category Social Info Options Details Social History Occupation: Retired from banking Travel outside [place]: no Alcohol: no Recreational drug use: no Exercise: yes periodically Home smoke detector use: yes Caffeine: yes frequency:tea 2- 3 per week Living Will has medical dire ctive Vital Signs Temperature 97.3 degrees Fahrenheit 06/23/20 25 Blood pressure systolic 116 mm Hg 06/23/20 25 Blood pressure diastolic 72 mm Hg 025 Heart Rate 80 /min 06/23/2025 Height 5 ft 6 in in 06/23/2025 Weight 217 lbs 06/23/2025 BMI 35.02 kg/m2 06/23/2025 Encounters Encounter Location Date Provider Diagnosis [facility] PED YESSI [address] [place] [address] 06/23/2025 Hope Whaley Hypothyroidism, unspecified type E03.9 ; Medicare annual wellness visit, subsequent Z00.00 ; Lymphedema I89.0 ; Visit for screening mammogram Z12.31 ; Mixed dyslipidemia E78.2 ; History of anemia Z86.2 ; Essential hypertension I10 ; Obesity, Class II, BMI 35-39.9 E66.812 and Immunization(s) administered Z23 Assessments Encounter Date Diagnosis (ICD Code) Assessment Notes Treatment Notes Treatment Clinical Notes Section Notes 06/23/2025 Hypothyroidism, unspecified type (ICD-10 - E03.9) Continue oral replacement, labs today 06/23/2025 Medicare annual wellness visit, subsequent (ICD-10 - Z00.00) Update influenza vaccination as noted, otherwise is UTD. Continue exercise and weight loss efforts. Consider colonoscopy 06/23/2025 Lymphedema (ICD-10 - I89.0) stable, improved with weight loss 06/23/2025 Visit for screening mammogram (ICD-10 - Z12.31) 06/23/2025 Mixed dyslipidemia (ICD-10 - E78.2) 06/23/2025 History of anemia (ICD-10 - Z86.2) 06/23/2025 Essential hypertension (ICD-10 - I10) well controlled 06/23/2025 Obesity, Class II, BMI 35-39.9 (ICD-10 - E66.812) 06/23/2025 Immunization(s) administered (ICD-10 - Z23) Plan Of Treatment Pending Test Test Name Order Date Mammogram: Screening 06/23/2025 Next Appt Details Follow Up: 1 Year, Reason: History and Physical Notes * Examination Category Sub-Category Detail Notes Category Not es General Examination HEENT: pharynx and tonsils normal, TM's normal Heart: Regular Rate and Rhy thm, no murmur, rubs or gallops Lungs: LCTAB, No wheezes, c rackles or rhonchi, Good air movement, , LCTAB, No wheezes, crackles or rhonchi, Good air movement, Abdomen: Soft, NTND, BSNA, No organomegaly or peritoneal signs. , Soft, NTND, BSNA, No organomegaly or peritoneal signs. Extremities: no clubbing, soft ch ronic lymphedema bilat lower extremities Skin: without acute rashes , dry skin on bilateral lower extremities Neurologic Exam: Alert and oriented x 3 Peripheral pulses: normal (2+) bilatera lly neck supple, General Pleasant and Coopera tive, NAD on RA,, Overweight Psych Normal Mood/Affect Progress Notes * Aggie PAUL LDOB: [birth year] (69 yo F)Acc No.[id number]:06/23/2025 Progress Notes Patient: Aggie GUTIERREZ Provider: CHRISTOPHER Blackman :1955 A ge:69 Y S ex:Female Date:06/23/2025 Address:[facility] [address], [address] [place], [place]-[id number] Subjective: * Chief Complaints: * 1 . Annual. * HPI: g en: Patient presents today for annual wellness visit, chronic disease FU. Followed routinely for HTN, hypothyroidism, and mild swelling r/t lower extremity lymphedema. Patient has achieved and maintained a 70 lb weight loss over the last 2-3 years through regular walking routine and diet modifications following her usp. Reports walking has become an important part of routine, and she looks forward to it She does note some minor knee pain that limits distance, but she has increased the frequency of her walks and maintained distance as to not aggravate the knee. No new concerns today. * ROS: F UNCTIONAL STATUS: ADLS I ndependent for all ADL/IADL. R ESPIRATORY: no S hortness of breath. n o C hest congestion.? C ARDIOLOGY: no D izziness. n o C hest pain. P alpitations?Occasionally, has had echo, echo was normal. Palpitations spontaneously resolve and have no accompanying symptoms . G ASTROENTEROLOGY: no N ausea. n o H eartburn. n o V omiting.?no A bdominal pain. n o D iarrhea. M USCULOSKELETAL: no J oint stiffness. n o J oint swelling. ? N EUROLOGY: no H eadache. n o I nsomnia. n o D izziness. O PTHALMOLOGY: Reviewed, No Symptoms Reported: Y es. U ROLOGY: no D ifficulty urinating. n o F requent urination.?no U rinary incontinence. * Medical History: * Surgical History: * Hospitalization/Major Diagno stic Procedure: * Family History: F ather: . M other: , cancer, diabetes, a-fib. P aternal Grand Father: . P aternal Grand Mother: . M aternal Grand Father: , prostate ca. Maternal Grand Mother: . P aternal uncle: . P aternal aunt: .?Maternal uncle: alive. M aternal aunt: alive, a-fib, dementia. S iblings: alive, 1/2 sister. C hildren: alive. 1 sister(s) - healthy. 1 daughter(s) - healthy. . * Social History: S moking A re you a:: nonsmoker. R ecreational drug use: no. Exercise: yes, periodically. Home smoke detector use: yes. Caffeine: yes, frequency:tea 2-3 per week. Living Will: has medical directive. Alcohol: no. Travel outside [place]: no. Occupation: Retired from banking. * Medications: T aking Ibuprofen 800 MG Tablet 1 tab(s) orally 3-4 times a day prn , Notes to Pharmacist: prn, Taking Triamcinolone Acetonide 0.1 % Ointment 1 cosme applied topically 3 times a day , Notes to Pharmacist: prn, Taking Nystatin 303459 UNIT/GM Cream 1 cosme applied topically 3 times a day , Notes to Pharmacist: prn, Taking Triamterene-HCTZ 37.5-25 MG Capsule TAKE ONE (1) CAPSULE BY MOUTH ONCE DAILY , Taking Levothyroxine Sodium 137 MCG Tablet 1 tab(s) orally once a day , Discontinued Amoxicillin 875 MG Tablet 1 tab(s) orally 2 times a day , Discontinued Promethazine-DM 6.25-15 MG/5ML Syrup 5 mL orally every 6 hours , Medication List reviewed and reconciled with the patient * Allergies: N .K.D.A. Objective: * Vitals: N urse: KJ, Pain: 0, Temp: 97.3, RR: 20, HR: 80, BP: 116/72, Ht: 5 ft 6 in, Wt: 217, BMI:35.02. * Examination: G eneral Examination: General P leasant and Cooperative, NAD on RA,, Overweight.? Heart: R egular Rate and Rhythm, no murmur, rubs or gallops. HEENT: p harynx and tonsils normal, TM's normal. Lungs: L CTAB, No wheezes, crackles or rhonchi, Good air movement, , LCTAB, No wheezes, crackles or rhonchi, Good air movement,. Abdomen: S oft, NTND, BSNA, No organomegaly or peritoneal signs. , Soft, NTND, BSNA, No organomegaly or peritoneal signs.. Neurologic Exam: A lert and oriented x 3. Skin: w ithout acute rashes, dry skin on bilateral lower extremities. Peripheral pulses: n ormal (2+) bilaterally. Extremities: n o clubbing, soft chronic lymphedema bilat lower extremities. neck supple,. Psych N ormal Mood/Affect. Assessment: * Assessment: 1. M darrel annual wellness visit, subsequent - Z00.00 (Primary) 2 . H ypothyroidism, unspecified type - E03.9 3 . L ymphedema - I89.0 4 .?Visit for screening mammogram - Z1231 5 . M ixed dyslipidemia - E78.2 6. H istory of anemia - Z86.2 7 . E ssential hypertension - I10 8 . O besity, Class II, BMI 35-39.9 - E66.812 9 . I mmunization(s) administered - Z23 Plan: * Treatment: 2. H ypothyroidism, unspecified type L AB: LIPID PANEL, STANDARD (7600) Value Reference Range T RIGLYCERIDES 122 <150 - mg/dL * C HOLESTEROL, TOTAL 185 <200 - mg/dL * H DL CHOLESTEROL 48 L > OR = 50 - mg/dL * L DL-CHOLESTEROL 114 H - mg/dL (calc) * C HOL/HDLC RATIO 3.9 <5.0 - (calc) * N ON HDL CHOLESTEROL 137 H <130 - mg/dL (calc) * Jose Elizabeth 06/24/20 03:32:51 PM EST > pt notifiedThis lab was reviewed by Jose Elizabeth on 06/24/2025 at 15:33 PM EST ?LAB: COMPREHENSIVE METABOLIC PANEL (08388)* Value Reference Range G LUCOSE 77 65-99 - mg/dL * U LUKAS NITROGEN (BUN) 14 7-25 - mg/dL * C REATININE 0.76 0.50-1.05 - mg/dL * B UN/CREATININE RATIO SEE NOTE: 6-22 - (calc) * S ODIUM 140 135-146 - mmol/L * P OTASSIUM 4.2 3.5-5.3 - mmol/L * C HLORIDE 102 98-110 - mmol/L * C ARBON DIOXIDE 26 20-32 - mmol/L * C ALCIUM 9.4 8.6-10.4 - mg/dL * P ROTEIN, TOTAL 7.2 6.1-8.1 - g/dL * A LBUMIN 3.9 3.6-5.1 - g/dL * G LOBULIN 3.3 1.9-3.7 - g/dL (calc ) * A LBUMIN/GLOBULIN RATIO 1.2 1.0-2.5 - (calc) * B ILIRUBIN, TOTAL 0.4 0.2-1.2 - mg/dL * A LKALINE PHOSPHATASE 95 37-153 - U/L * A ST 18 10-35 - U/L * A LT 8 6-29 - U/L * E GFR 85 > OR = 60 - mL/min/1 .73m2 * Jose Elizabeth 06/24/20 03:32:51 PM EST > pt notifiedThis lab was reviewed by Jose Elizabeth on 06/24/2025 at 15:33 PM EST ?LAB: CBC (INCLUDES DIFF/PLT) (1699)* Value Reference Range W LEYDA BLOOD CELL COUNT 7.8 3.8-10.8 - Thousan d/uL * R ED BLOOD CELL COUNT 4.78 3.80-5.10 - Million/ uL * H EMOGLOBIN 14.0 11.7-15.5 - g/dL * H EMATOCRIT 42.9 35.0-45.0 - % * M CV 89.7 80.0-100.0 - fL * M CH 29.3 27.0-33.0 - pg * M CHC 32.6 32.0-36.0 - g/dL * R DW 12.1 11.0-15.0 - % * P LATELET COUNT 398 140-400 - Thousand/u L * N EUTROPHILS 66.7 - % * A BSOLUTE NEUTROPHILS 5203 6672-9875 - cells/uL * L YMPHOCYTES 22.3 - % * A BSOLUTE LYMPHOCYTES 5455 039-9197 - cells/uL * M ONOCYTES 8.1 - % * A BSOLUTE MONOCYTES 632 200-950 - cells/uL * E OSINOPHILS 2.3 - % * A BSOLUTE EOSINOPHILS 179 15-500 - cells/uL * B ASOPHILS 0.6 - % * A BSOLUTE BASOPHILS 47 0-200 - cells/uL * M PV 10.7 7.5-12.5 - fL * Jose Elizabeth 06/24/20 03:32:51 PM EST > pt notifiedThis lab was reviewed by Jose Elizabeth on 06/24/2025 at 15:33 PM EST ?LAB: TSH W/REFLEX TO FT4 (22962)* Value Reference Range T SH W/REFLEX TO FT4 0.89 0.40-4.50 - mIU/L * Jose Elizabeth 06/24/20 03:32:51 PM EST > pt notifiedThis lab was reviewed by Jose Elizabeth on 06/24/2025 at 15:33 PM EST Clinical Notes: Continue oral replacement, labs today??3.?Lymphedema? Clinical Notes: stable, improved with weight loss??4.?Visit for screening mammogram?Imaging: Mammogram: Screening* 5.?Mixed dyslipidemia?LAB: LIPID PANEL, STANDARD (7600)* Value Reference Range T RIGLYCERIDES 122 <150 - mg/dL * C HOLESTEROL, TOTAL 185 <200 - mg/dL * H DL CHOLESTEROL 48 L > OR = 50 - mg/dL * L DL-CHOLESTEROL 114 H - mg/dL (calc) * C HOL/HDLC RATIO 3.9 <5.0 - (calc) * N ON HDL CHOLESTEROL 137 H <130 - mg/dL (calc) * Jose Elizabeth 06/24/20 25 03:32:51 PM EST > pt notifiedThis lab was reviewed by Jose Elizabeth on 06/24/2025 at 15:33 PM EST ?LAB: COMPREHENSIVE METABOLIC PANEL (76099)* Value Reference Range G LUCOSE 77 65-99 - mg/dL * U LUKAS NITROGEN (BUN) 14 7-25 - mg/dL * C REATININE 0.76 0.50-1.05 - mg/dL * B UN/CREATININE RATIO SEE NOTE: 6-22 - (calc) * S ODIUM 140 135-146 - mmol/L * P OTASSIUM 4.2 3.5-5.3 - mmol/L * C HLORIDE 102 98-110 - mmol/L * C ARBON DIOXIDE 26 20-32 - mmol/L * C ALCIUM 9.4 8.6-10.4 - mg/dL * P ROTEIN, TOTAL 7.2 6.1-8.1 - g/dL * A LBUMIN 3.9 3.6-5.1 - g/dL * G LOBULIN 3.3 1.9-3.7 - g/dL (calc ) * A LBUMIN/GLOBULIN RATIO 1.2 1.0-2.5 - (calc) * B ILIRUBIN, TOTAL 0.4 0.2-1.2 - mg/dL * A LKALINE PHOSPHATASE 95 37-153 - U/L * A ST 18 10-35 - U/L * A LT 8 6-29 - U/L * E GFR 85 > OR = 60 - mL/min/1 .73m2 * Jose Elizabeth 06/24/20 03:32:51 PM EST > pt notifiedThis lab was reviewed by Jose Elizabeth on 06/24/2025 at 15:33 PM EST ?LAB: CBC (INCLUDES DIFF/PLT) (7894)* Value Reference Range W LEYDA BLOOD CELL COUNT 7.8 3.8-10.8 - Thousan d/uL * R ED BLOOD CELL COUNT 4.78 3.80-5.10 - Million/ uL * H EMOGLOBIN 14.0 11.7-15.5 - g/dL * H EMATOCRIT 42.9 35.0-45.0 - % * M CV 89.7 80.0-100.0 - fL * M CH 29.3 27.0-33.0 - pg * M CHC 32.6 32.0-36.0 - g/dL * R DW 12.1 11.0-15.0 - % * P LATELET COUNT 398 140-400 - Thousand/u L * N EUTROPHILS 66.7 - % * A BSOLUTE NEUTROPHILS 5203 4503-9630 - cells/uL * L YMPHOCYTES 22.3 - % * A BSOLUTE LYMPHOCYTES 2697 631-5242 - cells/uL * M ONOCYTES 8.1 - % * A BSOLUTE MONOCYTES 632 200-950 - cells/uL * E OSINOPHILS 2.3 - % * A BSOLUTE EOSINOPHILS 179 15-500 - cells/uL * B ASOPHILS 0.6 - % * A BSOLUTE BASOPHILS 47 0-200 - cells/uL * M PV 10.7 7.5-12.5 - fL * Jose Elizabeth 06/24/20 03:32:51 PM EST > pt notifiedThis lab was reviewed by Jose Elizabeth on 06/24/2025 at 15:33 PM EST ?LAB: TSH W/REFLEX TO FT4 (45721)* Value Reference Range T SH W/REFLEX TO FT4 0.89 0.40-4.50 - mIU/L * Jose Elizabeth 06/24/20 03:32:51 PM EST > pt notifiedThis lab was reviewed by Jose Elizabeth on 06/24/2025 at 15:33 PM EST 6.?History of anemia?LAB: LIPID PANEL, STANDARD (7600)* Value Reference Range T RIGLYCERIDES 122 <150 - mg/dL * C HOLESTEROL, TOTAL 185 <200 - mg/dL * H DL CHOLESTEROL 48 L > OR = 50 - mg/dL * L DL-CHOLESTEROL 114 H - mg/dL (calc) * C HOL/HDLC RATIO 3.9 <5.0 - (calc) * N ON HDL CHOLESTEROL 137 H <130 - mg/dL (calc) * Jose Elizabeth 06/24/20 03:32:51 PM EST > pt notifiedThis lab was reviewed by Jose Elizabeth on 06/24/2025 at 15:33 PM EST ?LAB: COMPREHENSIVE METABOLIC PANEL (48638)* Value Reference Range G LUCOSE 77 65-99 - mg/dL * U LUKAS NITROGEN (BUN) 14 7-25 - mg/dL * C REATININE 0.76 0.50-1.05 - mg/dL * B UN/CREATININE RATIO SEE NOTE: 6-22 - (calc) * S ODIUM 140 135-146 - mmol/L * P OTASSIUM 4.2 3.5-5.3 - mmol/L * C HLORIDE 102 98-110 - mmol/L * C ARBON DIOXIDE 26 20-32 - mmol/L * C ALCIUM 9.4 8.6-10.4 - mg/dL * P ROTEIN, TOTAL 7.2 6.1-8.1 - g/dL * A LBUMIN 3.9 3.6-5.1 - g/dL * G LOBULIN 3.3 1.9-3.7 - g/dL (calc ) * A LBUMIN/GLOBULIN RATIO 1.2 1.0-2.5 - (calc) * B ILIRUBIN, TOTAL 0.4 0.2-1.2 - mg/dL * A LKALINE PHOSPHATASE 95 37-153 - U/L * A ST 18 10-35 - U/L * A LT 8 6-29 - U/L * E GFR 85 > OR = 60 - mL/min/1 .73m2 * Jose Elizabeth 06/24/20 03:32:51 PM EST > pt notifiedThis lab was reviewed by Jose Elizabeth on 06/24/2025 at 15:33 PM EST ?LAB: CBC (INCLUDES DIFF/PLT) (0999)* Value Reference Range W LEYDA BLOOD CELL COUNT 7.8 3.8-10.8 - Thousan d/uL * R ED BLOOD CELL COUNT 4.78 3.80-5.10 - Million/ uL * H EMOGLOBIN 14.0 11.7-15.5 - g/dL * H EMATOCRIT 42.9 35.0-45.0 - % * M CV 89.7 80.0-100.0 - fL * M CH 29.3 27.0-33.0 - pg * M CHC 32.6 32.0-36.0 - g/dL * R DW 12.1 11.0-15.0 - % * P LATELET COUNT 398 140-400 - Thousand/u L * N EUTROPHILS 66.7 - % * A BSOLUTE NEUTROPHILS 5203 8854-6234 - cells/uL * L YMPHOCYTES 22.3 - % * A BSOLUTE LYMPHOCYTES 6375 088-2571 - cells/uL * M ONOCYTES 8.1 - % * A BSOLUTE MONOCYTES 632 200-950 - cells/uL * E OSINOPHILS 2.3 - % * A BSOLUTE EOSINOPHILS 179 15-500 - cells/uL * B ASOPHILS 0.6 - % * A BSOLUTE BASOPHILS 47 0-200 - cells/uL * M PV 10.7 7.5-12.5 - fL * Jose Elizabeth 06/24/20 03:32:51 PM EST > pt notifiedThis lab was reviewed by Jose Elizabeth on 06/24/2025 at 15:33 PM EST ?LAB: TSH W/REFLEX TO FT4 (58339)* Value Reference Range T SH W/REFLEX TO FT4 0.89 0.40-4.50 - mIU/L * Jose Elizabeth 06/24/20 03:32:51 PM EST > pt notifiedThis lab was reviewed by Jose Elizabeth on 06/24/2025 at 15:33 PM EST 7.?Essential hypertension?LAB: LIPID PANEL, STANDARD (7600)* Value Reference Range T RIGLYCERIDES 122 <150 - mg/dL * C HOLESTEROL, TOTAL 185 <200 - mg/dL * H DL CHOLESTEROL 48 L > OR = 50 - mg/dL * L DL-CHOLESTEROL 114 H - mg/dL (calc) * C HOL/HDLC RATIO 3.9 <5.0 - (calc) * N ON HDL CHOLESTEROL 137 H <130 - mg/dL (calc) * Jose Elizabeth 06/24/20 03:32:51 PM EST > pt notifiedThis lab was reviewed by Jose Elizabeth on 06/24/2025 at 15:33 PM EST ?LAB: COMPREHENSIVE METABOLIC PANEL (64993)* Value Reference Range G LUCOSE 77 65-99 - mg/dL * U LUKAS NITROGEN (BUN) 14 7-25 - mg/dL * C REATININE 0.76 0.50-1.05 - mg/dL * B UN/CREATININE RATIO SEE NOTE: 6-22 - (calc) * S ODIUM 140 135-146 - mmol/L * P OTASSIUM 4.2 3.5-5.3 - mmol/L * C HLORIDE 102 98-110 - mmol/L * C ARBON DIOXIDE 26 20-32 - mmol/L * C ALCIUM 9.4 8.6-10.4 - mg/dL * P ROTEIN, TOTAL 7.2 6.1-8.1 - g/dL * A LBUMIN 3.9 3.6-5.1 - g/dL * G LOBULIN 3.3 1.9-3.7 - g/dL (calc ) * A LBUMIN/GLOBULIN RATIO 1.2 1.0-2.5 - (calc) * B ILIRUBIN, TOTAL 0.4 0.2-1.2 - mg/dL * A LKALINE PHOSPHATASE 95 37-153 - U/L * A ST 18 10-35 - U/L * A LT 8 6-29 - U/L * E GFR 85 > OR = 60 - mL/min/1 .73m2 * Jose Elizabeth 06/24/20 03:32:51 PM EST > pt notifiedThis lab was reviewed by Jose Elizabeth on 06/24/2025 at 15:33 PM EST ?LAB: CBC (INCLUDES DIFF/PLT) (6399)* Value Reference Range W LEYDA BLOOD CELL COUNT 7.8 3.8-10.8 - Thousan d/uL * R ED BLOOD CELL COUNT 4.78 3.80-5.10 - Million/ uL * H EMOGLOBIN 14.0 11.7-15.5 - g/dL * H EMATOCRIT 42.9 35.0-45.0 - % * M CV 89.7 80.0-100.0 - fL * M CH 29.3 27.0-33.0 - pg * M CHC 32.6 32.0-36.0 - g/dL * R DW 12.1 11.0-15.0 - % * P LATELET COUNT 398 140-400 - Thousand/u L * N EUTROPHILS 66.7 - % * A BSOLUTE NEUTROPHILS 5203 6056-2244 - cells/uL * L YMPHOCYTES 22.3 - % * A BSOLUTE LYMPHOCYTES 0099 660-6991 - cells/uL * M ONOCYTES 8.1 - % * A BSOLUTE MONOCYTES 632 200-950 - cells/uL * E OSINOPHILS 2.3 - % * A BSOLUTE EOSINOPHILS 179 15-500 - cells/uL * B ASOPHILS 0.6 - % * A BSOLUTE BASOPHILS 47 0-200 - cells/uL * M PV 10.7 7.5-12.5 - fL * Jose Elizabeth 06/24/20 03:32:51 PM EST > pt notifiedThis lab was reviewed by Jose Elizabeth on 06/24/2025 at 15:33 PM EST ?LAB: TSH W/REFLEX TO FT4 (40007)* Value Reference Range T SH W/REFLEX TO FT4 0.89 0.40-4.50 - mIU/L * Jose Elizabeth 06/24/20 03:32:51 PM EST > pt notifiedThis lab was reviewed by Jose Elizabeth on 06/24/2025 at 15:33 PM EST Clinical Notes: well controlled?? * Immunizations: Fluzone High Dose : 0.7 mL (Route: Intramuscular) given by CHRISTIAN Ravi on Left Arm (Immunization(s) administered) * Procedure Codes: 9 0662 Influenza High Dose Vaccine >65 Years Old, Units: 1.40 , G0008 ADMINISTRATION-FLU VACCINE MEDICARE ONLY, G0439 ANNUAL WELLNESS VST; PPS SUBSQT VST, G8399 PT W/DXA DOCUMENT OR ORDER, 1123F ADVANCED DIRECTIVE - HAS A LIVING WILL, G9899 Screening diagnostic,film,digital results documented and reviewed, 3017F COLORECTAL CA SCREEN DOC REV, G8417 BMI >=30 CALCUATE W/FOLLOWUP, G8510 NEGATIVE SCREENING F/U NOT REQUIRED, G9903 Pt scrn tbco id as non user, G8752 Most recent systolic blood pressure < 140mmhg, G8754 Most recent diastolic blood pressure < 90mmhg, G9744 PATIENT NOT ELIG D/T ACTIVE DX HTN * Preventive Medicine: Counseling: L iving will H as living will. COSME Screening: F alls: Future screening for fall risks H ave you had two or more falls in the past year? N o, H ave you had any falls with injury in the past year? N o. Depression Screening: P HQ 2 F eeling down depressed or hopeless N o. Immunizations: i nfluenza H ave you had a flu shot since the most recent April 04 ? Y es. P neumonia vaccine: Status for Older Adults A re you up-to-date on your pneumonia vaccine? yes or no P neumovax, PCV 20. Z ostavax A t retail pharmacy. T dap UTD. S hingrix U TD. C OVID C ompleted series. R SV vaccination C ompleted for season. Screening / Special Tests: M ammogram D ue July. P ap Smear s /p hysterectomy for noncancerous reasons. C olonoscopy d ue 2021 but declined to this point. B one mineral Density n ormal 2020. L geovanni Cancer Screening N ot indicated - nonsmoker.? * Follow Up: 1 Year * * Sign off status: Completed true * Provider: CHRISTOPHER Blackman Date: 08/23/2024 Generated for Paul ambrose/Evelyn/eTranyojanaitting on: 03:13 PM EST
--- NOTE | 2025-08-02 15:12 | MM_ITS ---
PROCEDURE INFORMATION: Exam: MG Bilateral Screening 3D Mammography Exam date and time: 08/02/2025 3:22 PM Age: 69 years old Clinical indication: Screening examination, personal history of right breast cancer and right lumpectomy. TECHNIQUE: Imaging protocol: Bilateral Screening tomosynthesis and 2D mammography including computer-aided detection (CAD) when performed. COMPARISON: 1. MG MM CLIP PLACEMENT LT 08/02/2024 10:42 AM 2. MG MM STEREOTACTIC LOC LT 08/02/2024 9:59 AM FINDINGS: MAMMOGRAPHY: Breast composition: There are scattered areas of fibroglandular density. Mass: None. Architectural distortion: Normal postlumpectomy changes are seen on the right including post surgical distortion, benign-type calcifications, parenchymal density, and skin thickening. Calcifications: No suspicious calcifications. Asymmetric density: None. Skin thickening: None. Axillary adenopathy: None. IMPRESSION: No mammographic evidence of malignancy. Annual screening is recommended unless otherwise clinically indicated. ASSESSMENT: BI-RADS Category 2: Benign.
--- OUTSIDE RECORDS SUMMARY | 2025-08-02 15:13 | XMS_ITS | Patient Health Record ---
Author Organization [facility] Address [address] [place] [address] Care Team Providers Care Aircraft Maintenance Engineer Name Role Phone Hope Whaley Primary Care Provider Ramon Tran Unavailable [phone] Migration, Provider Unavailable Unavailable Allergies No Known Allergies Results Component Value Reference Range Flag Notes Rapid Covid/Flu A-B Combo Reviewed date:10/08/2024 02:37:18 PM Interpretation: Performing Lab: Notes/Report: Rapid Covid neg Flu A neg Flu B neg LIPID PANEL, STANDARD (7600) Reviewed date:06/24/2025 03:33:04 PM Interpretation: Performing Lab:CB, [facility] [id number] [facility], [id number] [address] [place] Notes/Report: NON-FASTING; NON-FASTING; NON-FASTING; NON-FASTING [...] Alessandro REYES et al. MARY LOU. 2013;310(19): 5808-2845 ([email or web address]://[email or web address]) CHOL/HDLC RATIO 3.9 <5.0 (calc) N NON HDL CHOLESTEROL 137 <130 mg/dL (calc) H For patients with diabetes plus 1 major ASCVD risk factor, treating to a non-HDL-C goal of <100 mg/dL (LDL-C of <70 mg/dL) is considered a therapeutic option. COMPREHENSIVE METABOLIC PANE L (33571) Reviewed date:06/24/2025 03:33:04 PM Interpretation: Performing Lab:CORIE, [facility] [id number], [id number] [address] [place] Notes/Report: NON-FASTING; NON-FASTING; NON-FASTING; NON-FASTING [...] 9) Reviewed date:06/24/2025 03:33:04 PM Interpretation: Performing Lab:CORIE, [facility] [id number], [id number] [address] [place] Notes/Report: NON-FASTING; NON-FASTING; NON-FASTING; NON-FASTING [...] 10.7 7.5-12.5 fL N ABSOLUTE NEUTROPHILS 5203 4595-4704 cells/uL N ABSOLUTE LYMPHOCYTES 7260 065-9931 cells/uL N ABSOLUTE MONOCYTES 632 200-950 cells/uL N ABSOLUTE EOSINOPHILS 179 15-500 cells/uL N ABSOLUTE BASOPHILS 47 0-200 cells/uL N NEUTROPHILS 66.7 N LYMPHOCYTES 22.3 N MONOCYTES 8.1 N EOSINOPHILS 2.3 N BASOPHILS 0.6 N TSH W/REFLEX TO FT4 (66340) Reviewed date:06/24/2025 03:33:04 PM Interpretation: Performing Lab:CB, [facility] [id number] [facility], [facility] [id number] [address] [place] Notes/Report: NON-FASTING; NON-FASTING; NON-FASTING; NON-FASTING FASTING:YES FASTING: YES TSH W/REFLEX TO FT4 0.89 0.40-4.50 mIU/L N Medications Medication SIG (Take, Route, Frequency, Duration) Notes Start Date End Date Status Nystatin 694256 UNIT/GM Cream 1 judah applied topically 3 times a day; Duration: 14 days prn 02/19/2018 Active Triamcinolone Acetonide 0.1 % Ointment 1 judah applied topically 3 times a day; Duration: 7 day(s) prn 03/30/2022 Active Levothyroxine Sodium 137 MCG Tablet 1 tab(s) orally once a day; Duration: 30 days Active Triamterene-HCTZ 37.5-25 MG Capsule TAKE ONE (1) CAPSULE BY MOUTH ONCE DAILY; Duration: 90 Active Ibuprofen 800 MG Tablet 1 tab(s) orally 3-4 times a day prn prn Active Immunizations Vaccine Route Administration Date Status Comme nts Td Adult Unknown 01/07/1997 Administered SHINGRIX IM Intramuscular 09/02/2024 Administered SHINGRIX IM Intramuscular 12/03/2024 Administered Prevnar PCV-20 (Pneumococcal conjugate 20) IM Intramuscular 06/15/2024 Administered Pneumovax 23 IM Intramuscular 06/18/2021 Administered Influenza-Fluzone 3+years (NON-MEDICARE) IM Intramuscular 05/09/2016 Administered Influenza-Fluzone 3+years (NON-MEDICARE) IM Intramuscular 06/05/2017 Administered Influenza-Fluzone 3+years (NON-MEDICARE) IM Intramuscular 06/05/2018 Administered Fluzone High Dose IM Intramuscular 06/18/2021 Administered Fluzone High Dose IM Intramuscular 06/04/2023 Administered Fluzone High Dose IM Intramuscular 06/15/2024 Administered Fluzone High Dose IM Intramuscular 06/23/2025 Administered FLUZONE 6MO - OLDER Unknown 06/06/2019 Administered Fluvirin--Influenz a vaccine 3+ year IM Intramuscular 06/20/2014 Administered Given at [facility] Lot # [id number] Flublok IM Intramuscular 06/05/2020 Administered Arexvy IM Intramuscular 06/04/2023 Administered Adacel (Tdap) Unknown 07/30/2019 Administered Social History Social History Additional Details Category Social Info Options Details Social History Occupation: Retired from banking Travel outside [place]: no Alcohol: no Recreational drug use: no Exercise: yes periodically Home smoke detector use: yes Caffeine: yes frequency:tea 2- 3 per week Living Will has medical dire ctive Problems Problem Type SNOMED Code ICD Code Onset Dates Problem Status W/U Status Risk Notes Problem Hypothyroidism (19845579) Hypothyroidism (acquired) (E03.9) Active confirmed Problem Essential hypertension (93982946) Essential hypertension (I10) Active confirmed Problem Lymphedema (85599912) Lymphedema (I89.0) Active confirmed Problem Foot callus (274927983) Callus of foot (L84) Active confirmed Problem Body mass index 40+ - morbidly obese (763402777) BMI 40.0-44.9, adult (Z68.41) Active confirmed Problem Palpitations (86903749) Palpitation (R00.2) Active confirmed Problem Thyroid nodule (427657626) Thyroid nodule (E04.1) Active confirmed Problem Morbid obesity (978863094) Morbid obesity due to excess calories (E66.01) Active confirmed Problem History of anemia (249203456) History of anemia (Z86.2) Active confirmed Problem Peripheral edema (81305514) Peripheral edema (R60.9) Active confirmed Problem Iron deficiency anemia (92220211) Iron deficiency anemia, unspecified iron deficiency anemia type (D50.9) Active confirmed Problem Hypothyroidism (36712271) Hypothyroidism, unspecified type (E03.9) Active confirmed Problem Vitamin C deficiency (31643421) Vitamin C deficiency (E54) Active confirmed Problem Varicose vein (66963646) Varicose vein (I86.8) Active confirmed Problem Mixed hyperlipidemia (137786973) Mixed dyslipidemia (E78.2) Active confirmed Problem Hyperlipidemia (32670208) Mild hyperlipidemia (E78.5) Active confirmed Problem Obese class II (finding) (732506004327530) Obesity, Class II, BMI 35-39.9 (E66.812) Active confirmed Vital Signs Heart Rate 80 /min 06/23/2025 Temperature 97.3 degrees Fahrenheit 06/23/2025 Blood pressure diastolic 72 mm Hg 06/23/2025 Height 5 ft 6 in in 06/23/2025 Blood pressure systolic 116 mm Hg 06/23/2025 Weight 217 lbs 06/23/2025 BMI 35.02 kg/m2 06/23/2025 Encounters Encounter Location Date Provider Diagnosis [facility] [address] [facility] [address] [place] [address] 11/06/2024 Provider Migration Acute non-recurrent maxillary sinusitis J01.00 and Viral bronchitis J20.8 [facility] [address] [facility] [address] [place], [place] [address] 09/02/2024 Hope Whaley Hordeolum externum left lower eyelid H00.015 ; Hordeolum externum right upper eyelid H00.011 and Encounter for immunization Z23 [facility] [address] [facility] [address] [place], [place] [address] 10/08/2024 Ramon Tran Fever in adult R50.9 ; Acute non-recurrent maxillary sinusitis J01.00 and Viral bronchitis J20.8 [facility] [address] [facility] [address] [place], [place] [address] 12/03/2024 Hope Whaley Encounter for immunization Z23 [facility] [address] [facility] [address] [place] [address] 06/23/2025 Hope Whaley Hypothyroidism, unspecified type E03.9 ; Medicare annual wellness visit, subsequent Z00.00 ; Lymphedema I89.0 ; Visit for screening mammogram Z12.31 ; Mixed dyslipidemia E78.2 ; History of anemia Z86.2 ; Essential hypertension I10 ; Obesity, Class II, BMI 35-39.9 E66.812 and Immunization(s) administered Z23 Assessments Encounter Date Diagnosis (ICD Code) Assessment Notes Treatment Notes Treatment Clinical Notes Section Notes 09/02/2024 Hordeolum externum right upper eyelid (ICD-10 - H00.011) 09/02/2024 Hordeolum externum left lower eyelid (ICD-10 - H00.015) Recommend continue warm compresses, add erythromycin as noted and encouraged eye exam. 10/08/2024 Acute non-recurrent maxillary sinusitis (ICD-10 - J01.00) Has a concomitant sinusitis/bronc hitis. Patient notes that she has been on and off sick for about 10 days. Given his length of therapy and her abnormal physical exam will initiate antibiotic therapy. Instructions given RE new medication and stigmata of need to report back to the clinic 10/08/2024 Fever in adult (ICD-10 - R50.9) 11/06/2024 Acute non-recurrent maxillary sinusitis (ICD-10 - J01.00) 12/03/2024 Encounter for immunization (ICD-10 - Z23) 06/23/2025 Hypothyroidism, unspecified type (ICD-10 - E03.9) Continue oral replacement, labs today 06/23/2025 Medicare annual wellness visit, subsequent (ICD-10 - Z00.00) Update influenza vaccination as noted, otherwise is UTD. Continue exercise and weight loss efforts. Consider colonoscopy 06/23/2025 Lymphedema (ICD-10 - I89.0) stable, improved with weight loss 11/06/2024 Viral bronchitis (ICD-10 - J20.8) 09/02/2024 Encounter for immunization (ICD-10 - Z23) 10/08/2024 Viral bronchitis (ICD-10 - J20.8) Given bronchitis symptoms will treat with cough syrup. Also given the bronchitis symptoms I ordered flu and COVID testing given patient's community exposure. I have ordered and reviewed these test independently, increasing the complexity of the visit 06/23/2025 Visit for screening mammogram (ICD-10 - Z12.31) 06/23/2025 Mixed dyslipidemia (ICD-10 - E78.2) 06/23/2025 History of anemia (ICD-10 - Z86.2) 06/23/2025 Essential hypertension (ICD-10 - I10) well controlled 06/23/2025 Obesity, Class II, BMI 35-39.9 (ICD-10 - E66.812) 06/23/2025 Immunization(s) administered (ICD-10 - Z23) Plan Of Treatment Pending Test Test Name Order Date X ray : Chest 08/19/2016 Ultrasound : Pelvis, Transvaginal 2013 DEXA Hip and Spine - Screening 8 Echocardiogram 12/24/2022 Physical Therapy 08/21/2015 Physical Therapy 10/01/2019 Mammogram : Bilateral 09/28/2018 Mammogram : Bilateral 03/03/2018 Mammogram : Bilateral 10/02/2020 H-CBC with AUTO DIFF 11/28/2016 H-IRON & TIBC 08/19/2016 H-FERRITIN 11/28/2016 C-FERRITIN 02/19/2018 C-VITAMIN C 04/07/2014 C-CBC 04/07/2014 C-CBC 02/19/2018 C-BASIC METABOLIC 08/17/2015 C-CMP 02/19/2018 C-CMP 04/07/2014 C-LIPID PANEL 04/07/2014 C-LIPID PANEL 02/19/2018 C-TSH 04/07/2014 C-TSH 02/19/2018 C-TSH 08/17/2015 C-FOLATE 04/07/2014 C-VITAMIN B12 04/07/2014 C-VITAMIN D, 25-HYDROXY 04/07/2014 Physical Therapy : Lymphedema 11/27/2020 Physical Therapy : Lymphedema 10/01/2019 M-Complete Blood Count Auto Diff 021 M-Complete Blood Count Auto Diff 019 M-Comprehensive Metabolic Panel 09/28/19 19 M-Comprehensive Metabolic Panel 06/18/20 21 M-Ferritin 09/28/2018 M-Lipid Panel 06/18/2021 M-Thyroid Stimulating Hormone 09/28/2018 M-Thyroid Stimulating Hormone 06/18/2021 M-COVID PCR SINGLE RAPID 05/14/2020 Mammogram: Screening 06/15/2024 Mammogram: Screening 06/23/2025 Insurance Providers Payer Name Payer Address Payer Phone Subscriber Number Group Number Insured Name Patient Relationship to Insured Coverage Start Date Coverage End Date [place] [address] [place] [address] [id number] Aggie Rodriguez Self - patient is the insured [facility] [address] [place] [id number] Aggie Rodriguez Self - patient is the insured Medications Administered Medication Instructions Date of Administration Dosage Notes Dexamethasone 4mg Injection 10/08/2024 4 mL Triamcinolone Acetonide 40mg Injection 10/05/2018 1 mL Medical (General) History Medical History History ICD Code HTN Hypothyroidism Breast Cancer, right side, S/P lumpectom y and chemotherapy/radiation Uterine Fibroids Partial thyroidectomy for benign adenoma - Dr Patel, 2017 Colonoscopy, no polyps. Done in [place] around 2011, recommended 10 year FU Surgical History Surgery Date(Month/Year) left knee replacement- 05/13 thyroid growth removed -2011 breast lumps removed-2003 total hysterectomy 2014 Hospitalization History Reason Date(Month/Year) hysterectomy
--- OUTSIDE RECORDS SUMMARY | 2025-08-02 15:13 | XMS_ITS | Clinical Summary ---
Author Organization [facility] Address [address] [place] [address] Care Team Providers Care Quarrying Specialist Name Role Phone Ramon Tran MD Primary Care Provider [phone] Social History Tobacco Use Types Packs/Day Years Used Date Smoking Tobacco: Never Assessed Comments Unknown Sex and Gender Information Value Date Recorded Sex Assigned at Not on file Legal Sex Female 8:29 PM EDT Gender Identity Not on file Sexual Orientation Not on file Last Filed Vital Signs Vital Sign Reading Time Taken Comments Blood Pressure 150/88 01/09/2023 12:12 PM EDT Pulse 80 01/09/2023 12:12 PM EDT Temperature - - Respiratory Rate - - Oxygen Saturation - - Inhaled Oxygen Concentration - - Weight 125 kg (275 lb) 01/09/2023 12:12 PM EDT Height 167.6 cm (5' 6 ) 01/09/2023 12:12 PM EDT Body Mass Index 44.39 01/09/2023 12:12 PM EDT Plan of Treatment Health Maintenance Due Date Last Done Comments [facility]-Bone Density Scan 1955 [facility]-Depression Screening 1955 [facility]-Infant/Child/Adol SDOH Screenings 1955 [facility]- SDOH Screenings 11/16/1973 [facility]-Adult SDOH Screenings 11/16/1973 CT Colonography 11/16/2000 Colonoscopy 11/16/2000 FIT-DNA 11/16/2000 FIT 11/16/2000 FOBT 11/16/2000 Sigmoidoscopy 11/16/2000 [facility]-Colorectal Cancer Screening 11/16/2000 [facility]-Zoster Vaccines (1 of 2) 11/16/2005 [facility]-Pneumococcal Vaccine: 50+ Years (2 of 2 - PCV) 06/18/2022 06/18/2021 [facility]-BLTBQ-10 Vaccine ( season) 2025 06/19/2022, 08/09/2021, 10/11/2020 [facility]-Influenza Vaccine (#1) 04/04/202506/19, 06/05/2020, 06/06/2019, Additional history exists [facility]-DTaP,Tdap,and Td Vaccines (2 - Td or Tdap) 07/30/2029 07/30/2019, 01/07/1997 [facility]-RSV Vaccine: 60+ Years or (1 - 1-dose 75+ series) 11/16/2030 HPV Vaccines (No Doses Required) Completed [facility]-HIB Vaccines Aged Out No longer e ligible based on patient's age to complete this topic [facility]-Hepatitis A Vaccines Aged Out No longer eligible based on patient's age to complete this topic [facility]-IPV Vaccines Aged Out No longer e ligible based on patient's age to complete this topic [facility]-Rotavirus Vaccines Aged Out No lo nger eligible based on patient's age to complete this topic Insurance MEDICARE Member Subscriber Plan / Payer (Ef fective 2021-Present) Name:Aggie Paul Member ID:[id number] Relation to Subscriber:Self Name:Aggie Paul Subscriber ID:[id number] Payer ID:MEDICARE Group ID:Not on file Type:Medicare Address: [place] [phone] Care Teams Quarrying Specialist Relationship Specialty Start Date End Date Ramon Tran MD [facility] [id number] PCP - General 12/15/20
== END 2025-08-02 23:59 | disposition home or self-care (01) ==
LOC: RAD 15:11
PROVIDERS: PCP Nurse Practitioner Family; Visit Provider Nurse Practitioner Family
DX: Z12.31 Encounter for screening mammogram for malignant neoplasm of breast (principal); R92.323 Mammographic fibroglandular density, bilateral breasts; Z90.11 Acquired absence of right breast and nipple; Z85.3 Personal history of malignant neoplasm of breast
CPT/HCPCS: 77063; 77067